=== PATIENT | female | born 1980 | race Hispanic/Latino ===

== ENCOUNTER 2018-04-12 20:11 | Emergency (ER) | payer BC ==
[2018-04-12 22:14] VITALS: BP 130/69; PULSE 85; RESP 16; TEMP 98.1; O2SAT 99
--- NOTE | 2018-04-12 23:35 | ED PDOC ---
HPI: Back Time Seen by Provider: 04/12/18 22:38 Chief Complaint (Nursing): Back Pain Chief Complaint (Provider): Sciatic pain History Per: Patient History/Exam Limitations: no limitations Current Symptoms Are (Timing): Still Present Quality Of Discomfort: "Pain" (Pt presents to the ED with left sided sciatic pain with radiation through the gluteus and down the left leg; Pt indicates that there is no trauma whatsoever and the pain began following an eight hour flight and sitting at work all day long; pt denies fever, urinary symptoms, bowel or bladder control or other symtoms) Past Medical History Reviewed: Historical Data, Nursing Documentation, Vital Signs Vital Signs: Last Vital Signs Temp 98.1 F 04/12/18 22:08 Pulse 85 04/12/18 22:08 Resp 16 04/12/18 22:08 BP 130/69 04/12/18 22:08 Pulse Ox 99 04/12/18 22:08 - Medical History PMH: No Chronic Diseases - Family History Family History: States: Unknown Family Hx - Home Medications Home Medications: Ambulatory Orders Medication Instructions Recorded Diclofenac Sodium 50 mg PO BID #30 tablet. 04/12/18 diaZEpam [Valium] 5 mg PO DAILY #15 tab 04/12/18 - Allergies Allergies/Adverse Reactions: Allergies Allergy/AdvReac Type Severity Reaction Status Date / Time No Known Allergies Allergy Verified 04/12/18 22:54 Review of Systems Musculoskeletal: Positive for: Back Pain Physical Exam - Reviewed Nursing Documentation Reviewed: Yes Vital Signs Reviewed: Yes - Physical Exam Appears: Positive for: Well, Uncomfortable Head Exam: Positive for: ATRAUMATIC, NORMAL INSPECTION Skin: Positive for: Normal Color, Warm, Dry. Negative for: Diaphoresis, Pallor, Rash Eye Exam: Positive for: Normal appearance ENT: Positive for: Normal ENT Inspection Neck: Positive for: Normal, Painless ROM, Supple. Negative for: Decreased ROM Cardiovascular/Chest: Positive for: Regular Rate, Rhythm Respiratory: Positive for: Normal Breath Sounds Pulses-Carotid (L): 2+ Pulses-Carotid (R): 2+ Pulses-Radial (L): 2+ Pulses-Radial (R): 2+ Back: Negative for: Normal Inspection (significant paraspinal spams ), L CVA Tenderness, R CVA Tenderness - ECG O2 Sat by Pulse Oximetry: 99 Medical Decision Making Medical Decision Making: Clinical sciatica valium 10mg toradol 60mg Patient reports significant comfort and desires discharge The patient is stable for discharge and needs no further treatment at this facility Disposition - Clinical Impression Clinical Impression: Sciatic leg pain, Sciatica of left side, Low back pain - Patient ED Disposition Is Patient to be Admitted: No Doctor Will See Patient In The: Office Counseled Patient/Family Regarding: Studies Performed, Diagnosis, Need For Followup, Rx Given - Disposition Disposition: Routine/Home Disposition Time: 23:38 Condition: STABLE Additional Instructions: Follow up with PMD for further referral to physical therapy and managment of sciatica chronically Prescriptions: diaZEpam [Valium] 5 mg PO DAILY #15 tab Diclofenac Sodium 50 mg PO BID #30 tablet. Instructions: Sciatica, Low Back Pain in Adults, Sciatica (DC)
== END 2018-04-12 23:47 | disposition home or self-care (01) ==
LOC: H.ER 20:11
DX: M54.5 Low back pain (principal); M54.32 Sciatica, left side; M79.605 Pain in left leg
CPT/HCPCS: 96372; 99283; J1885